=== PATIENT | female | born 1975 | race Caucasian/White ===

== ENCOUNTER 2022-03-13 07:18 | Emergency (ER) | payer OTHER ==
[~2022-03-13] VITALS: Ht 167.6 cm; Wt 88.5 kg
== END 2022-03-13 09:32 | disposition home or self-care (01) ==
LOC: ER 07:18 → EDBD 07:18 → ER 09:32
DX: J06.9 Acute upper respiratory infection, unspecified (principal); Z53.21 Procedure and treatment not carried out due to patient leaving prior to being seen by health care provider
CPT/HCPCS: 99281